=== PATIENT | female | born 1975 | race African-American/Black ===

== ENCOUNTER 2023-04-17 08:30 | Day surgery (SDC) | payer OTHER ==
[2023-04-17] VITALS (10 sets, daily range): BP systolic 128–177; BP diastolic 82–122
[~2023-04-17] VITALS: Ht 175.3 cm; Wt 141.1 kg
[~2023-04-17 08:30] MED LIST: CYAN-17 PO; DULO1CAP5 PO; LEV100T PO; MONT-8 PO; MULTTAB99 PO
[2023-04-17] MEDS ORDERED: IODIXANOL 320MG/ML 100ML BTL IV ONE (10:56)
[2023-04-17] MEDS ORDERED: MIDAZOLAM HCL 2MG/2ML 2ml VIAL (1mg/ml) ONE (10:56)
[2023-04-17] MEDS ORDERED: ANGIOMAX 250 MG VIAL IV ONE (10:56)
[2023-04-17] MEDS ORDERED: SODIUM CHL 0.9% 0 ML ONE (10:56)
[2023-04-17] MEDS ORDERED: fentaNYL CITRATE 100 MCG/2 ML VL ONE (10:56)
[2023-04-17] MEDS ORDERED: LIDOCAINE 2%HCL (LOCAL ANESTH.) INJ 20ML MDV ONE (10:56)
[2023-04-17] MEDS ORDERED: VERAPAMIL 2.5MG/ML INJ 2ML VIAL IV ONE (10:58)
[2023-04-17] MEDS ORDERED: methylPREDNISolone SOD SUCC 125 MG/2 ML VL ONE (10:59)
[2023-04-17] MEDS ORDERED: FAMOTIDINE (10MG/ML) 2ML VL IV ONE (11:04)
[2023-04-17] MEDS ORDERED: diphenhdrAMINE HCL 50 MG/1 ML VL ONE (11:04)
[2023-04-17] MEDS ORDERED: HEPARIN SODIUM (PORCINE) 5000 UNITS/ML 1ML VIAL ONE (11:35)
[2023-04-17] MEDS ORDERED: HYDROcodone-ACET 5/325MG TAB PO ONE (12:30)
== END 2023-04-17 14:02 | disposition home or self-care (01) ==
LOC: CATH 08:30
PROVIDERS: ATTEND Internal Medicine
DX: I42.9 Cardiomyopathy, unspecified (principal); R94.39 Abnormal result of other cardiovascular function study; I50.9 Heart failure, unspecified
CPT/HCPCS: 93454; C1725; C1769; C1887; C1894; J1200; J1644; J2250; J2930; J3010; J3490; Q9967; 99152; 99153